=== PATIENT | female | born 1990 | race African-American/Black ===

== ENCOUNTER 2017-02-14 10:15 | Emergency (ER) | payer SELFPAY ==
[~2017-02-14] VITALS: Wt 78.0 kg
--- NOTE | 2017-02-14 11:30 | ERD ---
ER Documentation Chief Complaint Date/Time DATE: 02/14/17 TIME: 11:25 Chief Complaint NECK PAIN X 1 WEEK HPI 27-year-old female presents with cervical neck pain for 1 week that occurred suddenly when she woke up. She rates it moderate in severity. Increased with movement, denies history of range of motion. States he took ibuprofen prior to coming here. Denies trauma ROS All systems reviewed and are negative except as per history of present illness. Medications Home Meds Active Scripts Naproxen* (Naprosyn*) 500 Mg Tablet, 500 MG PO BID Y for PAIN AND/OR INFLAMMATION, #30 TAB Prov:ABHILASH BENTLEY PA-C 02/14/17 Cyclobenzaprine Hcl* (Cyclobenzaprine Hcl*) 10 Mg Tablet, 10 MG PO TID, #30 TAB Prov:ABHILASH BENTLEY PA-C 02/14/17 Physical Exam Vitals Vital Signs Date Time Temp Pulse Resp B/P Pulse Ox O2 Delivery O2 Flow Rate FiO2 02/14/17 10:19 98.1 58 18 125/78 99 Physical Exam Const: [] Head: Atraumatic Eyes: Normal Conjunctiva ENT: Normal External Ears, Nose and Mouth. Neck: Full range of motion..Tenderness palpation on the trapezius and cervical spine Resp: Clear to auscultation bilaterally Cardio: Regular rate and rhythm, no murmurs Abd: Soft, non tender, non distended. Normal bowel sounds Skin: No petechiae or rashes Back: No midline or flank tenderness Ext: No cyanosis, or edema Neur: Awake and alert Psych: Normal Mood and Affect Procedures/MDM 27-year-old female presents with neck pain and spasm, no evidence of fracture subluxation on cervical x-rays. Patient is stable and neurovascular intact to be discharged home to follow-up with primary care physician for ortho and physical therapy. Prescription for naproxen and Flexeril was provided. Departure Diagnosis: Primary Impression: Neck pain Condition: Stable ABHILASH BENTLEY PA-C Feb 14, 2017 11:30
[2017-02-14] MEDS ORDERED: NAPR-260 PO (11:42)
[2017-02-14] MEDS ORDERED: CYCL-319 PO (11:42)
--- NOTE | 2017-02-14 11:58 | RADRPT ---
PROCEDURE: XR Cervical Spine. CLINICAL INDICATION: Neck pain TECHNIQUE: 4 views of the cervical spine were performed. [facility] COMPARISON: None. FINDINGS: There is straightening and slight reversal of the normal cervical lordosis. Alignment is otherwise intact. There is no evidence of acute fracture or dislocation. Vertebral body heights are well audrey ntained. Intervertebral disc heights are well maintained. The odontoid is well centered within the lateral masses of C1. The prevertebral soft tissues are within normal limits. IMPRESSION: 1. Nonspecific straightening and reversal of the normal cervical lordosis. 2. Otherwise unremarkable cervical spine series. RPTAT: HJ[facility] .Tristan Duff MD, Date Time Electronically viewed and signed by .Tristan Duff MD, MD on 02/14/2017 11:57 .B/
== END 2017-02-14 12:15 | disposition home or self-care (01) ==
LOC: FTE 10:15
DX: M54.2 Cervicalgia (principal)
CPT/HCPCS: 72040